=== PATIENT | male | born 1965 | race Caucasian/White ===

== ENCOUNTER 2024-12-18 08:01 | Outpatient (CLI) | payer BC | END 2024-12-18 08:02 | disposition home or self-care (01) | LOC: SCSMRI 08:01 | PROVIDERS: ATTEND Family Medicine | DX: R41.3 Other amnesia (principal); R90.89 Other abnormal findings on diagnostic imaging of central nervous system; J33.9 Nasal polyp, unspecified | CPT/HCPCS: 70553; 76376 ==